=== PATIENT | female | born 1955 | race Caucasian/White ===

== ENCOUNTER → 2023-05-09 10:05 | Outpatient (CLI) | payer MEDICARE, OTHER, SELFPAY ==
[2023-05-09 11:02] LABS: Basophils % 0.5 % (0.1-2.0); Eosinophils # 0.1 K/mm3 (0.0-0.4); Eosinophils % 1.4 % (0.1-12.0); Hematocrit 35.5 % (37.0-47.0); Hemoglobin 11.4 g/dL (12.2-16.2); Lymphocytes # 2.6 K/mm3 (0.7-4.5); Lymphocytes % 42.4 % (10-50); Mean Corpuscular HGB Conc 32.2 g/dL (31.8-35.4); Mean Corpuscular Volume 93.1 fl (81-99); Mean Platelet Volume 8.1 fl (7.4-10.4); Monocytes # 1.1 K/mm3 (0.1-1.0); Monocytes % 17.5 % (1.7-9.3); Neutrophils # 2.3 K/mm3 (1.8-7.8); Neutrophils % 38.3 % (37.0-80.0); Platelet Count 247 K/mm3 (142-424); Red Blood Count 3.82 M/mm3 (4.20-5.40)
[2023-05-09 11:03] LABS: Chloride 108 mmol/L (98-107); Potassium 4.6 mmoL/L (3.5-5.1); Sodium 141 mmol/L (136-145)
[2023-05-09 11:05] LABS: Blood Urea Nitrogen 21 mg/dl (7-17); Estimated Glomerular Filt Rate 41 ml/min (>60); GFR (African American) 49 ML/MIN (>60)
[2023-05-09 11:06] LABS: Alanine Aminotransferase 18 U/L (12-78); Albumin Level 4.5 g/dl (3.5-5.0); Albumin/Globulin Ratio 1.6 (1.1-1.8); Alkaline Phosphatase 89 U/L (38-126); Anion Gap 10.6 mEq/L (5-15); Aspartate Amino Transferase 29 U/L (14-36); Bilirubin,Total 0.7 mg/dl (0.2-1.3); Calcium 8.7 mg/dl (8.4-10.2); Carbon Dioxide 27 mmol/L (22.0-30.0); Chol/HDL Ratio 4.5 (1-3.5); Cholesterol 232 mg/dl (140-200); Globulin 2.8 g/dL (1.3-3.2); Glucose 102 mg/dl (74-100); HDL Cholesterol 52 mg/dl (40-60); Total Protein,Serum 7.3 g/dl (6.3-8.2); Triglycerides 106 mg/dl (30-150); VLDL Cholesterol 21 mg/dL (0-40)
[2023-05-09 11:17] LABS: Direct LDL Cholesterol 125.37 mg/dL (100-129)
[2023-05-09 11:22] LABS: Free T4 (Free Thyroxine) 0.99 ng/dl (0.78-2.19)
[2023-05-09 11:30] LABS: 25-OH Vitamin D, Total 43.7 ng/mL (30-100)
[2023-05-09 11:38] LABS: Thyroid Stimulating Hormone 2.06 uIU/mL (0.465-4.68)
[2023-05-09 13:51] LABS: Hemoglobin A1C 5.6 % (4.0-6.0)
== END ==
PROVIDERS: PCP Internal Medicine; Visit Provider Internal Medicine
DX: Z00.00 Encounter for general adult medical examination without abnormal findings (principal); N18.31 Chronic kidney disease, stage 3a; E55.9 Vitamin D deficiency, unspecified; Z79.899 Other long term (current) drug therapy
CPT/HCPCS: 36415; 80053; 80061; 82306; 83036; 84439; 84443; 85025

== ENCOUNTER 2023-07-11 21:31 | Outpatient (CLI) | payer MEDICARE, OTHER, SELFPAY | END 2023-07-11 23:59 | LOC: LAB.DROPOF 21:32 | PROVIDERS: PCP Student in an Organized Health Care Education/Training Program; Visit Provider Student in an Organized Health Care Education/Training Program | DX: R05.9 Cough, unspecified (principal); R07.0 Pain in throat; R50.9 Fever, unspecified | CPT/HCPCS: 87635 ==

== ENCOUNTER 2023-08-09 12:33 | Outpatient (CLI) | payer MEDICARE, OTHER, SELFPAY ==
[2023-08-10 18:22] LABS: Deamidated Gliadin Abs, IgA 4 units (0-19); Deamidated Gliadin Abs, IgG 2 units (0-19); Tissue Transglutaminase IgA Ab <2 U/mL (0-3); Tissue Transglutaminase IgG Ab 2 U/mL (0-5)
[2023-08-12 15:26] LABS: Endomysial IgA Antibody Negative (Negative)
[2023-08-14 09:18] LABS: Reticulin IgA Antibody Negative titer (Neg:<1:2.5)
[2023-08-15 09:29] LABS: D001-IgE D pteronyssinus <0.10 kU/L (Class 0); D002-IgE D farinae <0.10 kU/L (Class 0); E001-IgE Cat Dander <0.10 kU/L (Class 0); E005-IgE Dog Dander <0.10 kU/L (Class 0); E072-IgE Mouse Urine <0.10 kU/L (Class 0); F004-IgE Wheat <0.10 kU/L (Class 0); G002-IgE Bermuda Grass <0.10 kU/L (Class 0); I006-IgE Cockroach, German <0.10 kU/L (Class 0); Immunoglobulin E, Total 28 IU/mL (6-495); M001-IgE Penicillium chrysogen <0.10 kU/L (Class 0); M002-IgE Cladosporium herbarum <0.10 kU/L (Class 0); M003-IgE Aspergillus fumigatus <0.10 kU/L (Class 0); M006-IgE Alternaria alternata <0.10 kU/L (Class 0); T001-IgE Maple/Box Elder <0.10 kU/L (Class 0); T003-IgE Common Silver Birch <0.10 kU/L (Class 0); T006-IgE Cedar, Mountain <0.10 kU/L (Class 0); T007-IgE Oak, White <0.10 kU/L (Class 0); T008-IgE Elm, American <0.10 kU/L (Class 0); T010-IgE Walnut <0.10 kU/L (Class 0); T011-IgE Maple Leaf Sycamore <0.10 kU/L (Class 0); T014-IgE Cottonwood <0.10 kU/L (Class 0); T015-IgE Ash, White <0.10 kU/L (Class 0); T022-IgE Pecan, Hickory <0.10 kU/L (Class 0); T070-IgE White Mulberry <0.10 kU/L (Class 0); W001-IgE Ragweed, Short 0.44 kU/L (Class I); W011-IgE Thistle, Russian <0.10 kU/L (Class 0); W014-IgE Pigweed, Common <0.10 kU/L (Class 0); W018-IgE Sheep Sorrel <0.10 kU/L (Class 0)
== END 2023-08-09 23:59 ==
LOC: LAB 12:34
PROVIDERS: PCP Internal Medicine; Visit Provider Allergy & Immunology
DX: J30.89 Other allergic rhinitis (principal); R10.9 Unspecified abdominal pain; Z91.018 Allergy to other foods
CPT/HCPCS: 36415; 82785; 83516; 86003; 86255; 86256

== ENCOUNTER 2023-09-09 12:03 | Outpatient (CLI) | payer MEDICARE, OTHER, SELFPAY ==
[2023-09-09 12:08] LABS: Microscopic, Urine URINE MICROSCOPIC (MICROSCOPIC)
[2023-09-09 12:57] LABS: Hemoglobin 11.5 g/dL (12.2-16.2); Mean Corpuscular HGB Conc 31.2 g/dL (31.8-35.4); Mean Corpuscular Volume 96.1 fl (81-99); Platelet Count 259 K/mm3 (142-424); Red Blood Count 3.84 M/mm3 (4.20-5.40); Red Cell Distribution Width 13.6 % (11.5-17.5); White Blood Count 6.1 K/mm3 (4.8-10.8)
[2023-09-09 12:59] LABS: Appearance,Urine CLEAR (Clear); Bilirubin,Urine Negative (Negative); Blood, Urine Negative (Negative); Color,Urine YELLOW (Yellow); Glucose,Urine (UA) Negative (Negative); Ketones,Urine Negative (Negative); Leukocyte Esterase,Urine Negative (Negative); Nitrate,Urine Negative (Negative); Protein,Urine Negative (Negative); Specific Gravity, Urine >= 1.030 (1.005-1.030); Urobilinogen,Urine 0.2 EU/dl (0.2)
[2023-09-09 13:22] LABS: Bacteria,Urine Trace /lpf; Squamous Epithelial Cell,Urine Occasional #/hpf (0-5)
[2023-09-09 13:30] LABS: Total Protein,Urine Random < 5.0 mg/dL (0.0-12.0)
[2023-09-09 13:46] LABS: Creatinine,Urine Random 131 mg/dL (Not Estab.)
[2023-09-09 14:00] LABS: Albumin Level 4.7 g/dl (3.5-5.0); Anion Gap 10.1 mEq/L (5-15); Blood Urea Nitrogen 23 mg/dl (7-17); Calcium 9.8 mg/dl (8.4-10.2); Carbon Dioxide 27 mmol/L (22.0-30.0); Chloride 106 mmol/L (98-107); Estimated Glomerular Filt Rate 41 ml/min (>60); GFR (African American) 49 ML/MIN (>60); Glucose 98 mg/dl (74-100); Phosphorous 4.2 mg/dl (2.5-4.5); Potassium 4.1 mmoL/L (3.5-5.1); Sodium 139 mmol/L (136-145)
[2023-09-09 14:12] LABS: Intact Parathyroid Hormone 123.1 pg/mL (7.5-53.5)
[2023-09-09 14:18] LABS: 25-OH Vitamin D, Total 47.9 ng/mL (30-100)
== END 2023-09-09 23:59 ==
LOC: LAB 12:03
PROVIDERS: PCP Internal Medicine; Visit Provider Internal Medicine Nephrology
DX: N18.31 Chronic kidney disease, stage 3a (principal); E55.9 Vitamin D deficiency, unspecified; Z68.29 Body mass index [BMI] 29.0-29.9, adult
CPT/HCPCS: 36415; 80069; 81001; 82306; 82570; 83970; 84156; 85014; 85018; 85048; 85049

== ENCOUNTER 2023-09-12 13:03 | Outpatient (POV) | payer MEDICARE, OTHER, SELFPAY | END 2023-09-12 23:59 | disposition home or self-care (01) | LOC: SC 13:03 | PROVIDERS: Visit Provider Internal Medicine Nephrology | DX: Z00.00 Encounter for general adult medical examination without abnormal findings (principal) ==

== ENCOUNTER 2023-12-17 06:22 | Day surgery (SDC) | payer MEDICARE, OTHER, SELFPAY ==
[2023-12-10 09:32] VITALS: BMI 29.0
[2023-12-17 06:36] VITALS: BP 138/72; PULSE 79; RESP 18; TEMP 36.3; O2SAT 94
[2023-12-17] MEDS: LACTATED RINGERS 1000ML 1,000 ML 25 ML IV (06:42)
--- NOTE | 2023-12-17 07:05 | EXP.ANES.CKL ---
[facility] Disclaimer: The information contained in this section may have been updated after the patient was seen, as this information can be updated by other users. Medical History Arthritis Kidney disease, chronic, stage III (GFR 30-59 ml/min) Surgical History History of hysterectomy Family History Other Asthma Hyperlipidemia Hypertension Kidney disease Thyroid disorder Social History Smoking Status: Never smoker alcohol intake: never substance use type: denies use current occupational status: retired Travel in the last 8 weeks: None [facility] Anesthesia Checklist Patient Identification Patient Identification: Arm Band and Family Structural Data Admitted From: Home Planned Operative Procedure/s: colonoscopy Consent for Planned Operative Procedure(s) Verified: Yes Verified Documents: Surgical Consent NPO Status Verified Time NPO: 00:00 Additional verifications Patient : No Anesthesia Reactions: No Hx Blood Transfusions: No Blood Transfusion Reaction: No Cephalosporin Allergy: No Previous Colonoscopy: Yes Airway Assessment Mallampati Score:: Class II C-Spine Mobility Assessed: Yes TMJ Mobility Assessed: Yes Dentition: Good Dentition Neurological Assessment Level of Consciousness: Awake, Alert, Appropriate and Follows Commands Hx Seizures: No Numbness or tingling in extremities: No Anesthesia Plan Anesthesia Risk discussed: Yes ASA Class: II Anesthesia Type: MAC
[2023-12-17 07:14] VITALS: O2SAT 99
--- NOTE | 2023-12-17 07:45 | P.PCN_ITS ---
Procedure: Date: 12/17/23 Patient Date of :: 1955 Procedure Performed:: Colonoscopy with polypectomy Indications:: History of colon polyps Performing Provider:: Mio Vaca MD Referring Provider:: . Sedation:: Monitored anesthesia care Procedure:: After informed consent was obtained the patient was taken to the endoscopy suite. Sedation ensued after the patient was transferred to the left lateral d ecubitus position. Pulse, blood pressure, and oxygen saturation were monitored throughout the procedure. Digital rectal exam revealed no significant abnormality. The colonoscope was placed in position. The entire colon was evaluated. The colonoscope was carefully removed and the patient was transferred to recovery in stable condition. Please see findings and specimens below for detail. Findings:: Bowel preparation fairly poor Moderate tortuosity Moderate lack of relaxation/spasticity (particularly in sigmoid colon) Hemorrhoidal cushions/tags Pandiverticulosis (worse in sigmoid) Large sessile complex polyp (see specimens) Specimens:: Large sessile complex periappendiceal polyp (cold snare) Recommendations:: Timing of repeat colonoscopy is pending pathology will likely be between 6-12 months with extended bowel preparation secondary to fairly poor bowel preparation, size/nature of polyp, and spasticity/lack of relaxation. Complications:: No immediate Estimated blood obtained (mL): 1 Colonoscopy Component Colonoscopy Component Was a colonoscopy performed during today's procedure?: Yes Recommended follow up colonoscopy of at least 10 years?: No If no, follow up colonoscopy recommended in ___ years?: (See above) Reason for not recommending >/= 10 yr follow-up interval?: (See above)
[2023-12-17 07:49] VITALS: BP 97/54; PULSE 79; RESP 18; TEMP 36.4; O2SAT 95
[2023-12-17 07:59] VITALS: BP 145/88; PULSE 89; RESP 16; TEMP 36.9; O2SAT 96
[2023-12-17 08:09] VITALS: BP 127/82; PULSE 78; RESP 16; TEMP 36.9; O2SAT 97
[2023-12-17 08:19] VITALS: BP 129/91; PULSE 77; RESP 16; TEMP 36.9; O2SAT 98
== END 2023-12-17 08:22 | disposition home or self-care (01) ==
PROVIDERS: PCP Internal Medicine; Visit Provider Surgery
PROC: 0DJD8ZZ Inspection of Lower Intestinal Tract, Via Natural or Artificial Opening Endoscopic (ICD-10-PCS; CPT 45385; principal; 2023-12-17 07:30)
DX: Z12.11 Encounter for screening for malignant neoplasm of colon (principal); Z86.010 Personal history of colon polyps; K64.9 Unspecified hemorrhoids; K57.30 Diverticulosis of large intestine without perforation or abscess without bleeding; D12.1 Benign neoplasm of appendix
CPT/HCPCS: 45385; 88305; J2704; J7120

== ENCOUNTER 2024-04-09 12:10 | Outpatient (CLI) | payer MEDICARE, OTHER, SELFPAY ==
--- NOTE | 2024-04-09 12:14 | XR_ITS ---
PROCEDURE INFORMATION: Exam: XR Lumbosacral Spine Exam date and time: 04/09/2024 12:15 PM Age: 68 years old Clinical indication: Low back pain TECHNIQUE: Imaging protocol: Radiologic exam of the lumbosacral spine. Views: 2 or 3 views. COMPARISON: CR XR PELVIS 1-2V 04/09/2024 12:15 PM FINDINGS: Bones/joints: There is slight anterolisthesis of L4 on L5. There is mild lower lumbar degenerative disease with facet arthropathy and intervertebral disc space narrowing. No acute fracture or dislocation is identified. Soft tissues: Unremarkable. Other findings: Prevertebral and paravertebral soft tissues appear unremarkable. IMPRESSION: Degenerative disease without acute injury identified.
--- NOTE | 2024-04-09 12:14 | XR_ITS ---
PROCEDURE INFORMATION: Exam: XR Pelvis Exam date and time: 04/09/2024 12:15 PM Age: 68 years old Clinical indication: Pelvic pain; Additional info: Low back pain TECHNIQUE: Imaging protocol: Radiologic exam of the pelvis. Views: 1 or 2 view. COMPARISON: CR XR PELVIS 1-2V 04/09/2024 12:15 PM FINDINGS: Bones/joints: Unremarkable. No acute fracture. Soft tissues: Unremarkable. IMPRESSION: No acute findings.
[2024-04-09 15:38] LABS: Alanine Aminotransferase 13 U/L (12-78); Albumin Level 4.6 g/dl (3.5-5.0); Albumin/Globulin Ratio 1.8 (1.1-1.8); Alkaline Phosphatase 73 U/L (38-126); Anion Gap 16.9 mEq/L (5-15); Aspartate Amino Transferase 25 U/L (14-36); Bilirubin,Total 0.5 mg/dl (0.2-1.3); Blood Urea Nitrogen 21 mg/dl (7-17); Calcium 9.5 mg/dl (8.4-10.2); Carbon Dioxide 24 mmol/L (22.0-30.0); Chloride 109 mmol/L (98-107); Estimated Glomerular Filt Rate 40 ml/min (>60); GFR (African American) 49 ML/MIN (>60); Globulin 2.5 g/dL (1.3-3.2); Glucose 77 mg/dl (74-100); Potassium 4.9 mmoL/L (3.5-5.1); Sodium 145 mmol/L (136-145); Total Protein,Serum 7.1 g/dl (6.3-8.2)
[2024-04-09 15:48] LABS: Intact Parathyroid Hormone 90.2 pg/mL (7.5-53.5)
== END 2024-04-09 23:59 | disposition home or self-care (01) ==
LOC: RAD 12:12
PROVIDERS: PCP Internal Medicine; Visit Provider Internal Medicine
DX: M54.50 Low back pain, unspecified (principal); N18.31 Chronic kidney disease, stage 3a; E21.3 Hyperparathyroidism, unspecified
CPT/HCPCS: 72100; 72170; 80053; 83970

== ENCOUNTER 2024-05-04 10:56 | Outpatient (CLI) | payer MEDICARE, OTHER, SELFPAY ==
--- NOTE | 2024-05-04 11:02 | MM_ITS ---
PROCEDURE INFORMATION: Exam: MG Bilateral Screening 3D Mammography Exam date and time: 05/04/2024 10:44 AM Age: 68 years old Clinical indication: Screening examination. TECHNIQUE: Imaging protocol: Bilateral Screening tomosynthesis and 2D mammography including computer-aided detection (CAD) when performed. COMPARISON: No relevant prior studies available. FINDINGS: MAMMOGRAPHY: Breast composition: There are scattered areas of fibroglandular density. Mass: None. Architectural distortion: None. Calcifications: No suspicious calcifications. Asymmetric density: None. Skin thickening: None. Axillary adenopathy: None. IMPRESSION: No mammographic evidence of malignancy. Annual screening is recommended unless otherwise clinically indicated. ASSESSMENT: BI-RADS Category 1: Negative.
== END 2024-05-04 23:59 | disposition home or self-care (01) ==
LOC: RAD 10:57
PROVIDERS: PCP Internal Medicine; Visit Provider Internal Medicine
DX: Z12.31 Encounter for screening mammogram for malignant neoplasm of breast (principal)
CPT/HCPCS: 77063; 77067

== ENCOUNTER 2024-05-20 09:54 | Emergency (ER) | payer MEDICARE, OTHER, SELFPAY ==
[2024-05-20 10:30] VITALS: BP 138/75; PULSE 87; RESP 18; TEMP 36.9; O2SAT 97; BMI 33.3
--- NOTE | 2024-05-20 10:52 | ED_ITS ---
Discharge Plan Disposition Patient Disposition: Home, Self-Care Condition: Good Prescriptions Prescriptions: No Action cholecalciferol (vitamin D3) [D3-2000] 50 mcg (2,000 unit) capsule 50 mcg PO DAILY Patient Comments: TAKE ONE CAPSULE BY MOUTH DAILY trazodone 50 mg tablet 75 mg PO HS Qty: 145 1RF enalapril maleate 5 mg tablet See Rx Instructions .ROUTE .COMPLEX Qty: 90 0RF Dose Instruction: TAKE 1 TABLET BY MOUTH EVERY DAY Rx Instructions: TAKE 1 TABLET BY MOUTH EVERY DAY Referrals Follow up/Referrals: Fabrizio Pickett, [Primary Care Provider] - See instructions Activity Restrictions/Add. Instructions Additional Instructions/Restrictions: *Monitor Temp, Over the counter Motrin or Tylenol as directed/as needed Tylenol every 4 hours and Motrin every 6 hours (as long as your family doctor has told you that you can take it) for fever or pain. and straight to ER if unable to lower temp less than 101.0 after medication given *Warm salt water gargles may help to soothe the throat *Throat Lozenges? *Warm fluids like tea with honey may help to soothe the throat? *Sleep elevated *Humidifier/Vaporizer Follow up IMMEDIATELY for new or worsening symptoms or no Noticeable improvement over the next 48-72 hours. 911 for difficulty breathing or swallowing You was tested for RSV and Rapid COVID Flu, these test should be back later today and available on the [facility] My [facility] Portal, Follow up with your Family Doctor if needed Clinical Impressions Clinical Impression: Viral upper respiratory infection Instructions Patient Instructions: DI for Respiratory Syncytial Virus -- Adults, DI for Viral Upper Respiratory Infection -- Adult Print Language Print Language: Arabic Discharge ED Provider: Aleida Pavon [facility] HPI General Stated complaint: chest congestion, cough, fever, body aches Time Seen by Provider: 05/20/24 10:52 History of Present Illness Provider Complaint: Patient states that she cared for one of her grandchildren last week with RSV then on Saturday she started with fever, chills, body aches and congestion States that she wanted to get tested worried that she may have it now too Related Data Home Medications ?Medication ?Instructions ?Recorded ?Confirmed cholecalciferol (vitamin D3) 50 50 mcg PO DAILY 10/03/23 05/20/24 mcg (2,000 unit) capsule (D3-1999) Previous Rx's ?Medication ?Instructions ?Recorded trazodone 50 mg tablet 75 mg (1.5 x 50 mg) PO HS #145 tabs 03/12/24 enalapril maleate 5 mg tablet See Rx Instructions .Route 04/07/24 .COMPLEX #90 tabs Allergies Allergy/AdvReac Type Severity Reaction Status Date / Time No Known Allergies Allergy Verified 04/09/24 11:06 [facility] Disclaimer: The information contained in this section may have been updated after the patient was seen, as this information can be updated by other users. Medical History Arthritis Kidney disease, chronic, stage III (GFR 30-59 ml/min) Surgical History History of colonoscopy History of hysterectomy Family History Other Asthma Hyperlipidemia Hypertension Kidney disease Thyroid disorder Social History Smoking Status: Never smoker alcohol intake: never substance use type: denies use current occupational status: retired Travel in the last 8 weeks: None ROS Obtained: Yes All systems reviewed & no additional complaints except as documented and Yes Systems reviewed as appropriate & no additional complaints except as documented Constitutional Constitutional: Reports system reviewed and no additional complaints, except as documented, Reports as per HPI, Reports body ache, Reports chills and Reports fever(s) ENT Ears, Nose, Mouth, and Throat: Reports system reviewed and no additional complaints, except as documented, Reports as per HPI and Reports nasal congestion Cardiovascular Cardiovascular: Reports system reviewed and no additional complaints, except as documented and Reports as per HPI Respiratory Respiratory: Reports system reviewed and no additional complaints, except as documented, Reports as per HPI, Denies shortness of breath, Reports chest congestion, Reports cough, Denies stridor and Denies wheezing Gastrointestinal Gastrointestingal: Reports system reviewed and no additional complaints, except as documented and as per HPI Allergic/Immunologic Allergic/Immunologic: Denies wheezing Physical Exam General General appearance: alert and in no apparent distress ENT ENT exam: Present mucous membranes moist Expanded ENT Exam Nose exam: Absent sinus tenderness Throat exam: Present normal inspection Respiratory Respiratory exam: Present normal lung sounds bilaterally; Absent respiratory distress or wheezes Cardiovascular Cardiovascular exam: Present regular rate, normal rhythm and normal heart sounds Neurological Exam Neurological exam: Present alert, oriented X3 and normal gait Medical Decision Making Medical Records Screening: Per USPSTF and CDC recommendations, given the prevalence of disease in our region, it is our hospital?s policy to screen for HIV and viral Hepatitis for all patients aged 18 and over and those with ongoing risk factors. Jez Inquiry Pt receiving controlled substance: No Jez was queried for this patient: No Orders (Tests/Meds): ORDERS Category Date Time Status RSV Rapid Ab Screen Stat Lab 05/20/24 10:07 Received
[2024-05-20 11:03] VITALS: BP 138/75; PULSE 87; RESP 18; TEMP 36.9; O2SAT 97
[2024-05-20 11:07] LABS: RSV Rapid Ab Screen Negative (Negative)
[2024-05-20 11:14] LABS: Coronavirus 19, PCR Not Detected (NotDetected); Influenza A, PCR Not Detected (NotDetected); Influenza B, PCR Not Detected (NotDetected)
== END 2024-05-20 11:07 | disposition home or self-care (01) ==
PROVIDERS: Emergency Provider Nurse Practitioner; PCP Internal Medicine
DX: J06.9 Acute upper respiratory infection, unspecified (principal); R50.9 Fever, unspecified; R09.89 Other specified symptoms and signs involving the circulatory and respiratory systems; R05.9 Cough, unspecified; M79.10 Myalgia, unspecified site
CPT/HCPCS: 87636; 87807; 99212; G0381

== ENCOUNTER 2024-05-25 11:01 | Outpatient (CLI) | payer MEDICARE, OTHER, SELFPAY ==
[2024-05-25 11:10] LABS: Microscopic, Urine URINE MICROSCOPIC (MICROSCOPIC)
[2024-05-25 11:54] LABS: Hematocrit 34.8 % (37.0-47.0); Hemoglobin 11.3 g/dL (12.2-16.2); Mean Corpuscular HGB Conc 32.5 g/dL (31.8-35.4); Mean Corpuscular Hemoglobin 29.6 pg (27.0-31.2); Platelet Count 255 K/mm3 (142-424); Red Blood Count 3.83 M/mm3 (4.20-5.40); Red Cell Distribution Width 13.6 % (11.5-17.5); White Blood Count 7.8 K/mm3 (4.8-10.8)
[2024-05-25 12:24] LABS: Chloride 107 mmol/L (98-107); Sodium 135 mmol/L (136-145)
[2024-05-25 12:25] LABS: Albumin Level 4.4 g/dl (3.5-5.0)
[2024-05-25 12:27] LABS: Blood Urea Nitrogen 20 mg/dl (7-17); Carbon Dioxide 25 mmol/L (22.0-30.0); Estimated Glomerular Filt Rate 40 ml/min (>60); GFR (African American) 49 ML/MIN (>60)
[2024-05-25 12:28] LABS: Calcium 9.7 mg/dl (8.4-10.2); Glucose 91 mg/dl (74-100); Phosphorous 3.6 mg/dl (2.5-4.5)
[2024-05-25 12:38] LABS: Appearance,Urine CLEAR (Clear); Bilirubin,Urine Negative (Negative); Blood, Urine Negative (Negative); Color,Urine YELLOW (Yellow); Glucose,Urine (UA) Negative (Negative); Ketones,Urine Negative (Negative); Leukocyte Esterase,Urine Negative (Negative); Nitrate,Urine Negative (Negative); Protein,Urine Negative (Negative); Specific Gravity, Urine >= 1.030 (1.005-1.030); Urobilinogen,Urine 0.2 EU/dl (0.2)
[2024-05-25 12:57] LABS: WBC,Urine Occasional #/hpf (0-3)
[2024-05-25 12:58] LABS: Creatinine,Urine Random 149 mg/dL (Not Estab.)
[2024-05-25 16:18] LABS: 25-OH Vitamin D, Total 47.2 ng/mL (30-100)
== END 2024-05-25 23:59 | disposition home or self-care (01) ==
LOC: LAB 11:03
PROVIDERS: PCP Internal Medicine; Visit Provider Internal Medicine Nephrology
DX: N18.31 Chronic kidney disease, stage 3a (principal)
CPT/HCPCS: 36415; 80069; 81001; 82306; 82570; 84156; 85027

== ENCOUNTER 2025-01-17 09:06 | Emergency (ER) | payer MEDICARE, OTHER, SELFPAY ==
[2025-01-17] VITALS (10 sets, daily range): BP systolic 119–145; BP diastolic 59–87; PULSE 58–77; RESP 11–21; TEMP 36.4–36.7; O2SAT 93–99; BMI 28.7
--- NOTE | 2025-01-17 09:13 | ECG_ITS ---
APPROVED REPORT Exam: Resting ECG HR:62 bpm ECG Measurements Heart Rate 62 AXES MI 159 P 67 QRSd 85 QRS 68 QT 395 T 53 QTc 399 Conclusion SINUS RHYTHM NORMAL ECG UNCONFIRMED REPORT Normal sinus rhythm. No ST elevation or depression. Electronically signed by : WES RIVERA, 01/18/2025 07:06:00
--- NOTE | 2025-01-17 09:15 | HMH.EDGENADL ---
Discharge Plan Disposition Patient Disposition: Home, Self-Care Prescriptions Prescriptions: No Action epinephrine 0.3 mg/0.3 mL auto-injector 0.3 mg SQ cholecalciferol (vitamin D3) [D3-2000] 50 mcg (2,000 unit) capsule 50 mcg PO DAILY Patient Comments: TAKE ONE CAPSULE BY MOUTH DAILY cetirizine 10 mg tablet 10 mg PO fluticasone propionate 50 mcg/actuation spray,suspension intranasal Patient Comments: SHAKE LIQUID AND USE 1 SPRAY IN EACH NOSTRIL DAILY trazodone 50 mg tablet 75 mg PO HS Qty: 145 1RF ramelteon [Rozerem] 8 mg tablet 8 mg PO HS PRN (Reason: insomnia) Qty: 90 2RF enalapril maleate 5 mg tablet 5 mg PO DAILY Qty: 90 1RF Referrals Follow up/Referrals: Fabrizio Pickett DO [Primary Care Provider, [facility]] - See instructions Activity Restrictions/Add. Instructions Additional Instructions/Restrictions: Your workup today does not show any evidence of stroke or heart attack or other concerning findings. Encourage you to follow-up with your primary care physician closely. Continue to drink plenty of fluids, including water, sugar-free Gatorade and Pedialyte. If you develop any new or worsening symptoms, or if you become concerned for your hit health for any reason, return to the emergency department for evaluation. Clinical Impressions Clinical Impression: Pre-syncope Print Language Print Language: Macedonian Discharge ED Provider: Regino Galvan General Adult HPI General Chief complaint: Dizziness Stated complaint: feeling faint,weak, blurry vision Time Seen by Provider: 01/17/25 09:15 History of Present Illness HPI narrative: Paola Lambert is a 69-year-old female with a history of CKD stage III, hypertension who presents to the emergency department for complaints of a presyncopal episode. Patient states that she was standing in [employer] practicing singing when she felt both eyes get blurry and felt lightheaded and like she was about to pass out. She states that her vision started to get darkened. She denies any chest pain or shortness of breath with this. She sat down and over 10 minutes, the symptoms resolved on their own. She states that she may have a slight lower vision in her left eye currently but overall feels back to her baseline. She does report a history of CKD and hypertension and states that she has passed out a couple times in the past. She denies any recent nausea, vomiting, diarrhea, abdominal pain. She states that she feels like she has been hydrating well. She does report that she had COVID approximately 2 weeks ago and may have a mild cough but otherwise has been doing well. Related Data Home Medications ?Medication ?Instructions ?Recorded ?Confirmed cholecalciferol (vitamin D3) 50 50 mcg PO DAILY 10/03/23 01/13/25 mcg (2,000 unit) capsule (D3-2000) epinephrine 0.3 mg/0.3 mL 0.3 mg SQ 12/15/24 01/13/25 injection, auto-injector cetirizine 10 mg tablet 10 mg PO 01/13/25 01/13/25 fluticasone propionate 50 intranasal 01/13/25 01/13/25 mcg/actuation nasal spray,suspension Previous Rx's ?Medication ?Instructions ?Recorded trazodone 50 mg tablet 75 mg (1.5 x 50 mg) PO HS #145 tabs 03/12/24 ramelteon 8 mg tablet (Rozerem) 8 mg PO HS PRN insomnia #90 tabs 12/08/24 enalapril maleate 5 mg tablet 5 mg PO DAILY #90 tabs 01/12/25 Allergies Allergy/AdvReac Type Severity Reaction Status Date / Time No Known Allergies Allergy Verified 01/17/25 09:23 [facility] Disclaimer: The information contained in this section may have been updated after the patient was seen, as this information can be updated by other users. Medical History Arthritis Kidney disease, chronic, stage III (GFR 30-59 ml/min) Surgical History History of colonoscopy History of hysterectomy Family History Other Asthma Hyperlipidemia Hypertension Kidney disease Thyroid disorder Social History Smoking Status: Never smoker alcohol intake: never substance use type: denies use current occupational status: retired Travel in the last 8 weeks?: None Have you lived/traveled outside US in past 30 days?: No Contact w/someone who lives/traveled outside US past 30 days?: No Exposure to someone with infectious disease in past 14 days?: No Do you have a fever (greater than 100.4 F or 38 C)?: No Have you tested positive for COVID-19?: No Exposed to someone with COVID-19 in past 14 days?: No Do you have a sore throat?: No Do you have a cough?: No Do you have any weakness?: No Do you have any diarrhea?: No Are you experiencing any unusual bleeding?: No Do you have any muscle aches/pain?: No Do you have any abdominal pain?: No Are you experiencing loss of taste or smell?: No Other Medical History Have you received the Pneumonia Vaccine: Yes ROS Obtained: Yes Systems reviewed as appropriate & no additional complaints except as documented Physical Exam General General appearance: alert and in no apparent distress Head Head exam: atraumatic Eye Eye exam: Present normal appearance ENT ENT exam: Present normal external ear exam Neck Neck exam: Present full ROM Chest Chest inspection: Present symmetric chest wall rise Respiratory Respiratory exam: Present normal lung sounds bilaterally; Absent respiratory distress, wheezes or stridor Cardiovascular Cardiovascular exam: Present regular rate and normal rhythm Abdominal Exam Abdominal exam: Present soft; Absent distention, tenderness or guarding Extremities Exam Extremities exam: Present normal inspection Back Exam Back exam: Present normal inspection Neurological Exam Neurological exam: Present alert, oriented X3, CN II-XII intact and other (Normal finger-nose testing, normal hziv-[id number] testing extraocular muscles intact, pupils equal round reactive to light, no nystagmus ); Absent motor sensory deficit Psychiatric Psychiatric exam: Present normal affect Skin Skin exam: Present warm and dry Medical Decision Making Medical Records Screening: Per USPSTF and CDC recommendations, given the prevalence of disease in our region, it is our hospital?s policy to screen for HIV and viral Hepatitis for all patients aged 18 and over and those with ongoing risk factors. Jez Inquiry Pt receiving controlled substance: No Vital Signs: 01/17/25 09:16 01/17/25 09:16 01/17/25 09:30 Temperature 97.6 F 97.6 F Temperature Source Oral Oral Pulse Rate 62 62 Pulse Rate [Right] 62 Respiratory Rate 16 16 11 L Blood Pressure 134/60 119/61 Blood Pressure [Right Arm] 134/60 Blood Pressure Mean [Right Arm] 84 Blood Pressure Source Automatic Cuff Blood Pressure Source [Right Arm] Automatic Cuff Blood Pressure Position Supine Blood Pressure Position [Right Arm] Supine 02 Sat by Pulse Oximetry 97 97 93 L Oxygen Delivery Method Room Air Room Air 01/17/25 10:00 01/17/25 10:30 01/17/25 11:00 Temperature Temperature Source Pulse Rate 65 71 70 Pulse Rate [Right] Respiratory Rate 15 15 17 Blood Pressure 119/61 128/64 125/67 Blood Pressure [Right Arm] Blood Pressure Mean [Right Arm] Blood Pressure Source Blood Pressure Source [Right Arm] Blood Pressure Position Blood Pressure Position [Right Arm] 02 Sat by Pulse Oximetry 96 95 94 L Oxygen Delivery Method 01/17/25 11:30 01/17/25 12:00 01/17/25 12:31 Temperature Temperature Source Pulse Rate 69 58 L 77 Pulse Rate [Right] Respiratory Rate 14 13 21 Blood Pressure 122/64 124/59 L 145/87 H Blood Pressure [Right Arm] Blood Pressure Mean [Right Arm] Blood Pressure Source Blood Pressure Source [Right Arm] Blood Pressure Position Blood Pressure Position [Right Arm] 02 Sat by Pulse Oximetry 95 97 97 Oxygen Delivery Method Room Air Room Air Room Air 01/17/25 13:00 Temperature Temperature Source Pulse Rate 70 Pulse Rate [Right] Respiratory Rate 15 Blood Pressure 127/70 Blood Pressure [Right Arm] Blood Pressure Mean [Right Arm] Blood Pressure Source Blood Pressure Source [Right Arm] Blood Pressure Position Blood Pressure Position [Right Arm] 02 Sat by Pulse Oximetry 96 Oxygen Delivery Method Room Air Lab Data Lab Results 01/17/25 09:16: WBC 8.6, RBC 3.80 L, Hgb 11.0 L, Hct 35.6 L, MCV 93.7, MCH 28.9, MCHC 30.9 L, RDW 13.2, Plt Count 229, MPV 10.9 H, Neut % (Auto) 28.1 L, Lymph % (Auto) 41.1, Dukes % (Auto) 27.6 H, Eos % (Auto) 1.5, Baso % (Auto) 0.4, Neut # (Auto) 2.4, Lymph # (Auto) 3.5, Dukes # (Auto) 2.4 H, Eos # (Auto) 0.1, Baso # (Auto) 0.0, Total Counted 100, Neutrophils % (Manual) 31 L, Lymphocytes % (Manual) 41, Monocytes % (Manual) 24 H, Eosinophils % (Manual) 4 H, Platelet Estimate Normal, RBC Morphology Normal, Sodium 141, Potassium 4.0, Chloride 106, Carbon Dioxide 23, Anion Gap 16.0 H, BUN 22 H, Creatinine 1.50 H, Estimated Creat Clear 44, Estimated GFR 34 L, Est GFR ( Amer) 41 L, Glucose 114 H, Calcium 9.1, Total Bilirubin 0.5, AST 27, ALT 14, Alkaline Phosphatase 108, Troponin I < 0.01, NT-Pro-B Natriuret Pep 184 H, Total Protein 7.8, Albumin 4.6, Globulin 3.2, Albumin/Globulin Ratio 1.4 01/17/25 09:56: Urine Color Yellow, Urine Appearance Clear, Urine pH 6.0, Ur Specific Cortland 1.020, Urine Protein Negative, Urine Glucose (UA) Negative, Urine Ketones Negative, Urine Blood Negative, Urine Nitrate Negative, Urine Bilirubin Negative, Urine Urobilinogen 0.2, Ur Leukocyte Esterase 1+ A, Urine RBC None, Urine WBC 3-5, Ur Squamous Epith Cells 3-5, Urine Bacteria 1+, Hyaline Casts Occ 01/17/25 12:24: Troponin I < 0.01 01/17/25 09:16 01/17/25 09:16 Orders (Tests/Meds): ED MEDICATIONS Generic Name Dose Route Start Last Admin Trade Name Freblair PRN Reason Stop Dose Admin Sodium Chloride 10 ml 01/17/25 10:07 01/17/25 10:08 Sodium Chloride 0.9% 10ml Syr (Rad Only) IV 02/16/25 10:06 10 ml NEEDED PRN Administration Maintain IV Site Discontinued Medications Generic Name Dose Route Start Last Admin Trade Name Freq PRN Reason Stop Dose Admin Lactated Ringer's 500 mls @ 999 mls/hr 01/17/25 09:24 01/17/25 09:51 Lactated Ringer's 500ml IV 01/17/25 09:54 999 mls/hr .Q31M ONE Administration Iopamidol 80 ml 01/17/25 10:07 01/17/25 10:08 Iopamidol-370 (76%);100ml Bottle IV 01/17/25 10:08 80 ml ONCE ONE Administration Sodium Chloride 50 ml 01/17/25 10:07 01/17/25 10:08 0.9 % Sodium Chloride 50 Ml Vial IV 01/17/25 10:08 50 ml ONCE ONE Administration ORDERS Category Date Time Status CT angio head Stat Cat Scan 01/17/25 09:[address] angio neck Stat Cat Scan 01/17/25 09:[address] head/brain wo con Stat Cat Scan 01/17/25 09:23 Completed CXR --portable [XR chest portable] Stat Exams 01/17/25 09:28 Completed POCUS Point of Care (ER Only) Stat Exams 01/17/25 09:28 Completed BNP [NT Pro Brain Natriuretic Pep.] Stat Lab 01/17/25 09:16 Completed CBC w/Auto Diff [Complete Blood Count Auto Diff] Stat Lab 01/17/25 09:16 Completed CMP [Comprehensive Metabolic Panel] Stat Lab 01/17/25 09:16 Completed Troponin I Q3H Lab 01/17/25 12:24 Completed Troponin I Q3H Lab 01/17/25 15:30 Ordered Troponin I Stat Lab 01/17/25 09:16 Completed UA [Urinalysis and Microscopic] Stat Lab 01/17/25 09:56 Completed Urine Culture Stat Micro 01/17/25 09:56 Received ECG Data Tracing #1: I reviewed this ECG and interpreted as documented below: Normal sinus rhythm. No ST elevation or depression. QTc normal at 399 Medical Decision Narrative: Paola Lambert is a 69-year-old female with a history of CKD stage III, hypertension who presents to the emergency department for complaints of a presyncopal episode. Patient states that she was standing in [employer] practicing singing when she felt both eyes get blurry and felt lightheaded and like she was about to pass out. She states that her vision started to get darkened. She denies any chest pain or shortness of breath with this. She sat down and over 10 minutes, the symptoms resolved on their own. She states that she may have a slight lower vision in her left eye currently but overall feels back to her baseline. She does report a history of CKD and hypertension and states that she has passed out a couple times in the past. She denies any recent nausea, vomiting, diarrhea, abdominal pain. She states that she feels like she has been hydrating well. She does report that she had COVID approximately 2 weeks ago and may have a mild cough but otherwise has been doing well. On arrival, patient is normotensive with blood pressure 134/60, heart rate within normal limits, afebrile, maintaining oxygen saturation 97% on room air. Physical exam, stated above, reveals an overall well-appearing female in no distress. GCS 15. Cranial nerves II through XII intact. Normal finger-nose testing, normal [id number]-qp-[id number] testing, 5 out of 5 strength and sensation to all extremities. Cardiopulmonary exam is unremarkable with no murmurs, wheezing, rales or rhonchi. Abdomen is soft, nontender nondistended. Visual manzo are intact bilaterally. Pupils equal round reactive to light. Extraocular movements intact. Differential diagnosis includes, but is not limited to: Vasovagal syncope, orthostatic syncope, cardiac arrhythmia, stroke, carotid artery stenosis, electrolyte derangement, metabolic derangement, ACS, pericarditis, myocarditis, pericardial effusion, among others. Workup in the emergency department included: Chest x-ray, [id number] cardiac and lung ultrasound, CTA head and neck, CT head without contrast, CBC with differential, CMP, troponin, BNP, urinalysis. Patient was fluid bolus given her history of CKD administered a 500 cc prior to obtaining contrasted CT scans. [id number]-[id number] cardiac ultrasound showed normal estimated left ventricular ejection fraction without wall motion abnormality. No pericardial effusion. No signs of right heart strain. No B-lines present bilaterally with lung sliding present bilaterally. See procedure note for details. Laboratory studies show no leukocytosis, stably low hemoglobin at 11.0, hematocrit 35.6, platelets normal at 229, electrolytes within normal limits, anion gap is mildly elevated at 16, creatinine near baseline at 1.5 and BUN of 22. Liver enzymes and bilirubin thin normal limits. Initial troponin less than 0.01, BNP very mildly elevated at 184. Urinalysis with 1+ leukocyte Estrace but only 3-5 white blood cells and 1+ bacteria with negative nitrates, unlikely to represent urinary tract infection given she is not having any urinary symptoms. Chest x-ray interpreted by me personally. No focal consolidations, no pneumothorax, no widening of the mediastinum, no enlarged cardiac silhouette. See radiology report for details. CT imaging was interpreted by me personally. No large vessel occlusion or significant stenosis. No intracranial hemorrhage, mass or midline shift. She does have plaque in the left carotid bulb causing less than 50% stenosis. On reassessment, patient's repeat troponin is also negative. On reassessment, patient remained in stable condition. He was able to ambulate here in the emergency department. Is felt that she likely had a vasovagal episode while standing at [employer]. She was encouraged to continue hydrating by drinking plenty of fluids and was encouraged to avoid locking her knees while standing. She was encouraged to follow-up with her primary care physician. Return precautions were given. All questions were answered. She demonstrated understanding and was agreement this plan. She was then discharged in the emergency department in stable condition. Critical Care Critical Care Time Critical Care Time: No
--- OUTSIDE RECORDS SUMMARY | 2025-01-17 09:19 | XMS_ITS | Clinical Summary ---
Author Organization Healthcare Address [address] [place] [address] Care Team Providers Care Checker Stocker Name Role Phone Fabrizio Pickett DO Primary Care Provider [phone] Allergies No known active allergies Medications Ascorbic Acid (vitamin C) 250 MG tablet Take 1 tablet (250 mg) by mouth 1 (one) time each day. Active enalapril (Vasotec) 5 MG tablet Take 1 tablet (5 mg) by mouth 1 (one) time each day. Active traZODone (Desyrel) 50 MG tablet Take 1 tablet (50 mg) by mouth every night. Active fluticasone (Flonase) 50 MCG/ACT nasal spray SHAKE LIQUID AND USE 1 SPRAY IN EACH NOSTRIL DAILY 07/11/2023 Active cholecalciferol (Vitamin D-3) 50 MCG (1999 UT) capsuleIndicati ons:Vitamin D deficiency TAKE ONE CAPSULE BY MOUTH DAILY 90 capsule 3 09/24/2024 Active Active Problems Problem Noted Date Diagnosed Date Other hyperlipidemia 05/29/2024 Stage 3 chronic kidney disease 05/29/2024 Hypertensive chronic kidney disease with stage 1 through stage 4 chronic kidney disease, or unspecified chronic kidney disease 05/29/2024 Chronic kidney disease-mineral and bone disorder (CKD-MBD) 05/29/2024 Immunizations Immunization Administration Dates Next Due Influenza Vaccine, Quadrival ent, Adjuvanted 04/21/2022 Influenza, Unspecified 04/21/2022 Influenza, seasonal, injectable 03/26/2019 Moderna COVID-19 Vaccine Biv alent 6months+ 04/27/2022 SARS-CoV-2, Unspecified 04/27/2022,01/22,07/09/2021,2020,10/09/2020,08/22/2020 Tdap 02/23/2020 Tetanus Toxoid, Unspecified 06/19/2015, 6 Family History Medical History Relation Name Comments Asthma Father Kidney Stones Father Liver cancer Father Pancreatic cancer Father Relation Name Status Comments Father Social History Tobacco Use Types Packs/Day Years Used Date Smoking Tobacco: Never Passive Smoke Exposure: Never Smokeless Tobacco: Never Tobacco Cessation:Counseling Given: Not Answered Alcohol Use Standard Drinks/Week Comments Never 0 (1 standard drink = 0.6 oz pur e alcohol) PHQ-2 Answer Date Recorded Patient Health Questionnaire-2 Score 0 09/12/2023 Comments No Sex and Gender Information Value Date Recorded Sex Assigned at Not on file Legal Sex Female 3:12 PM EST Gender Identity Not on file Sexual Orientation Not on file Last Filed Vital Signs Vital Sign Reading Time Taken Comments Blood Pressure 118/68 05/29/2024 9:07 AM EST Pulse 80 05/29/2024 9:07 AM EST Temperature 36.3 C (97.4 F) 05/29/2024 9:07 AM EST Respiratory Rate 16 05/29/2024 9:07 AM EST Oxygen Saturation 98% 05/29/2024 9:07 AM EST Inhaled Oxygen Concentration - - Weight 85.7 kg (189 lb) 05/29/2024 9:07 AM EST Height 167.6 cm (5' 6 ) 05/29/2024 9:07 AM EST Body Mass Index 30.51 05/29/2024 9:07 AM EST Plan of Treatment Upcoming Encounters Date Type Department Care Team (Late st Contact Info) Description 04/30/2025 11:40 AM EST Office Visit [facility] [address] [place] [id number] Claudio Thompson MD [address] [place] [phone] Health Maintenance Due Date Last Done Comments [facility]-Bone Density Scan 1955 [facility]-Hepatitis C Screening 1955 [facility]-/Child/Adol SDOH Screenings 1955 [facility]- SDOH Screenings 10/07/1971 [facility]-Adult SDOH Screenings 10/07/1971 CT Colonography 1998 Colonoscopy 1998 FIT-DNA 1998 FIT 1998 FOBT 1998 Sigmoidoscopy 1998 [facility]-Colorectal Cancer Screening 1998 [facility]-Breast Cancer Screening 10/07/2003 [facility]-Pneumococcal Vaccine: 50+ Years (1 of 1 - PCV) 10/07/2003 [facility]-Zoster Vaccines (1 of 2) 10/07/2003 [facility]-RSV Vaccine: 60+ Years or (1 - Risk 60-74 years 1-dose series) 2013 [facility]-Medicare Annual Wellness (AWV) 05/09/2023 05/09/2022 [facility]-Depression Screening 09/11/2024 09/12/2023 [id number] Vaccine (11 - Mixed Product risk 2023- season) 09/21/2024 03/23/2024, 06/11/2023, 04/27/2022, Additional history exists [facility]-Influenza Vaccine (#1) 02/08/202503/16, 04/21/2022, 04/21/2022, Additional history exists [facility]-DTaP,Tdap,and Td Vaccines (2 - Td or Tdap) 02/22/2030 02/23/2020 [facility]-Obesity Intervention Completed 05/29/2024, 0409/2023 HPV Vaccines Aged Out No longer eligi ble based on patient's age to complete this topic [facility]-HIB Vaccines Aged Out No longer e ligible based on patient's age to complete this topic [facility]-Hepatitis A Vaccines Aged Out No longer eligible based on patient's age to complete this topic [facility]-IPV Vaccines Aged Out No longer e ligible based on patient's age to complete this topic [facility]-Rotavirus Vaccines Aged Out No lo nger eligible based on patient's age to complete this topic Insurance MEDICARE Member Subscriber Plan / Payer (Ef fective 2018-Present) Name:Paola Lambert Member ID:[id number] Relation to Subscriber:Self Name:Paola Lambert Subscriber ID:[id number] Payer ID:MEDICARE Group ID:Not on file Type:Medicare Address: [place] [id number] Care Teams Checker Stocker Relationship Specialty Start Date End Date Fabrizio Pickett DO [address] [place] [address] PCP - General 06/01/24
--- NOTE | 2025-01-17 09:23 | CT_ITS ---
PROCEDURE INFORMATION: Exam: CTA Head With Contrast, Arteriography Exam date and time: 01/17/2025 10:07 AM Age: 69 years old Clinical indication: Other: Presyncope, left eye blurry vision TECHNIQUE: Imaging protocol: Computed tomographic angiography of the head with contrast. Exam focused on the arteries. 3D rendering (Not supervised by radiologist): MIP and/or 3D reconstructed images were created by the technologist. Radiation optimization: All CT scans at this facility use at least one of these dose optimization techniques: automated exposure control; mA and/or kV adjustment per patient size (includes targeted exams where dose is matched to clinical indication); or iterative reconstruction. Contrast material: ISOVUE; Contrast volume: 80 ml; Contrast route: INTRAVENOUS (IV); COMPARISON: CT HEAD/BRAIN WO CON 01/17/2025 10:05 AM FINDINGS: ANTERIOR CIRCULATION: Right internal carotid artery: Intracranial segment is patent with no significant stenosis. No aneurysm. Right middle cerebral artery: No occlusion or significant stenosis. No aneurysm. Right anterior cerebral artery: No occlusion or significant stenosis. No aneurysm. Left internal carotid artery: Intracranial segment is patent with no significant stenosis. No aneurysm. Left middle cerebral artery: No occlusion or significant stenosis. No aneurysm. Left anterior cerebral artery: No occlusion or significant stenosis. No aneurysm. POSTERIOR CIRCULATION: Right vertebral artery: No occlusion or significant stenosis. No aneurysm. Left vertebral artery: No occlusion or significant stenosis. No aneurysm. Basilar artery: No occlusion or significant stenosis. No aneurysm. Right posterior cerebral artery: No occlusion or significant stenosis. No aneurysm. Left posterior cerebral artery: No occlusion or significant stenosis. No aneurysm. Brain: No definite mass, mass effect, or midline shift. Cerebral ventricles: No ventriculomegaly. Orbital cavities: No abnormalities. Bones/joints: No acute fracture or focal bone lesions. Soft tissues: No masses or swelling. IMPRESSION: No large vessel occlusion. No acute intracranial abnormalities.
--- NOTE | 2025-01-17 09:23 | CT_ITS ---
PROCEDURE INFORMATION: Exam: CT Head Without Contrast Exam date and time: 01/17/2025 10:05 AM Age: 69 years old Clinical indication: Other: Presyncope, left eye blurry vision TECHNIQUE: Imaging protocol: Computed tomography of the head without contrast. Radiation optimization: All CT scans at this facility use at least one of these dose optimization techniques: automated exposure control; mA and/or kV adjustment per patient size (includes targeted exams where dose is matched to clinical indication); or iterative reconstruction. COMPARISON: CT HEAD/BRAIN WO CON 01/17/2025 10:05 AM FINDINGS: Brain: No acute intracranial hemorrhage.. There is mild diffuse heterogeneity of the white matter attenuation, consistent with chronic white matter ischemic changes. Cerebral ventricles: No ventriculomegaly. Paranasal sinuses: Visualized sinuses are unremarkable. No fluid levels. Mastoid air cells: Visualized mastoid air cells are well aerated. Bones: Degenerative changes in the temporomandibular joint No acute fracture. Soft tissues: Unremarkable. IMPRESSION: No acute intracranial hemorrhage..
--- NOTE | 2025-01-17 09:23 | CT_ITS ---
PROCEDURE INFORMATION: Exam: CTA Neck With Contrast Exam date and time: 01/17/2025 10:07 AM Age: 69 years old Clinical indication: Other: Presyncope, left eye blurry vision TECHNIQUE: Imaging protocol: Computed tomographic angiography of the neck with contrast. Exam focused on the cervical segments of the vasculature. 3D rendering (Not supervised by radiologist): MIP and/or 3D reconstructed images were created by the technologist. Radiation optimization: All CT scans at this facility use at least one of these dose optimization techniques: automated exposure control; mA and/or kV adjustment per patient size (includes targeted exams where dose is matched to clinical indication); or iterative reconstruction. Contrast material: ISOVUE; Contrast volume: 80 ml; Contrast route: INTRAVENOUS (IV); COMPARISON: CT HEAD/BRAIN WO CON 01/17/2025 10:05 AM FINDINGS: Right common carotid artery: No stenosis. No dissection or occlusion. Right internal carotid artery: No stenosis of the extracranial segment. No dissection or occlusion. Right external carotid artery: No occlusion or stenosis of the origin. Left common carotid artery: No significant stenosis of the extracranial segment. No dissection or occlusion. Calcified plaque in the carotid bulb causes less than 50% stenosis. Left internal carotid artery: No stenosis of the extracranial segment. No dissection or occlusion. Left external carotid artery: No occlusion or stenosis of the origin. Right vertebral artery: No stenosis. No dissection or occlusion. Left vertebral artery: No stenosis. No dissection or occlusion. Soft tissues: No masses or edema. Bones/joints: No acute fracture, subluxations, or bone lesions. IMPRESSION: 1. No significant arterial stenosis or occlusion in the neck. 2. Plaque in the left carotid bulb causes less than 50% stenosis. REFERENCES: NASCET CRITERIA. The degree of stenosis in the cervical segment of the internal carotid artery is based on NASCET criteria. Normal is no stenosis. Mild is less than 50% stenosis. Moderate is 50-69% stenosis. Severe is 70% to 99% stenosis. Total occlusion is no detectable patent lumen.
--- NOTE | 2025-01-17 09:28 | XR_ITS ---
PROCEDURE INFORMATION: Exam: XR Chest Exam date and time: 01/17/2025 9:33 AM Age: 69 years old Clinical indication: Cough and shortness of breath and other: Syncope, cough TECHNIQUE: Imaging protocol: Radiologic exam of the chest. Views: 1 view. COMPARISON: No relevant prior studies available. FINDINGS: Lungs: Unremarkable. No consolidation. Pleural spaces: Unremarkable. No pleural effusion. No pneumothorax. Heart/Mediastinum: Unremarkable. No cardiomegaly. Bones/joints: Unremarkable. IMPRESSION: No acute findings.
[2025-01-17 09:33] LABS: Chloride 106 mmol/L (98-107)
[2025-01-17 09:34] LABS: Albumin Level 4.6 g/dl (3.5-5.0); Potassium 4.0 mmoL/L (3.5-5.1); Sodium 141 mmol/L (136-145)
[2025-01-17 09:35] LABS: Hematocrit 35.6 % (37.0-47.0); Hemoglobin 11.0 g/dL (12.2-16.2); Immature Granulocytes % 1.3 %; Mean Corpuscular HGB Conc 30.9 g/dL (31.8-35.4); Mean Corpuscular Hemoglobin 28.9 pg (27.0-31.2); Mean Corpuscular Volume 93.7 fl (81-99); Nucleated Red Blood Cells % 0 %; Platelet Count 229 K/mm3 (142-424); Red Blood Count 3.80 M/mm3 (4.20-5.40); Red Cell Distribution Width-SD 45.0 fL; White Blood Count 8.6 K/mm3 (4.8-10.8)
[2025-01-17 09:37] LABS: Alanine Aminotransferase 14 U/L (12-78); Albumin/Globulin Ratio 1.4 (1.1-1.8); Alkaline Phosphatase 108 U/L (38-126); Anion Gap 16.0 mEq/L (5-15); Aspartate Amino Transferase 27 U/L (14-36); Bilirubin,Total 0.5 mg/dl (0.2-1.3); Blood Urea Nitrogen 22 mg/dl (7-17); Calcium 9.1 mg/dl (8.4-10.2); Carbon Dioxide 23 mmol/L (22.0-30.0); Creatinine Clearance Estimated 44 mL/min (50-200); Creatinine,Serum 1.50 mg/dl (0.52-1.04); Estimated Glomerular Filt Rate 34 ml/min (>60); GFR (African American) 41 ML/MIN (>60); Globulin 3.2 g/dL (1.3-3.2); Glucose 114 mg/dl (74-100); Total Protein,Serum 7.8 g/dl (6.3-8.2)
[2025-01-17 09:46] LABS: NT Pro Brain Natriuretic Pep. 184 pg/mL (0-125)
[2025-01-17 09:49] LABS: Troponin I < 0.01 ng/ml (0.00-0.034)
[2025-01-17] MEDS: RINGERS SOLUTION,LACTATED 500 ML 999 ML IV (09:51)
[2025-01-17 10:03] LABS: Bilirubin,Urine Negative (Negative); Color,Urine YELLOW (Yellow); Glucose,Urine (UA) Negative (Negative); Ketones,Urine Negative (Negative); Leukocyte Esterase,Urine 1+ (Negative); Microscopic, Urine URINE MICROSCOPIC (MICROSCOPIC); PH,Urine 6.0 (5.0-8.5); Protein,Urine Negative (Negative); Specific Gravity, Urine 1.020 (1.005-1.030); Urobilinogen,Urine 0.2 EU/dl (0.2)
[2025-01-17] MEDS: 0.9 % SODIUM CHLORIDE 50 ML VIAL IV (10:08)
[2025-01-17] MEDS: SODIUM CHLORIDE 0.9% 10ML SYR (RAD ONLY) 10 ML IV (10:08)
[2025-01-17] MEDS: IOPAMIDOL-370 (76%);100ML BOTTLE 80 ML IV (10:08)
[2025-01-17 10:12] LABS: Bacteria,Urine 1+ /lpf; Hyaline Casts,Urine OCC #/lpf (0)
[2025-01-17 10:30] LABS: RBC Morphology Normal; Total Cells Counted 100
[2025-01-17 12:53] LABS: Troponin I < 0.01 ng/ml (0.00-0.034)
--- NOTE | 2025-01-23 03:15 | PC.NURSE ---
POS urine cx. Pt has 0 symtoms, no intervention needed per Dr. Perez.
== END 2025-01-17 13:40 | disposition home or self-care (01) ==
PROVIDERS: Emergency Provider Student in an Organized Health Care Education/Training Program; PCP Internal Medicine
DX: R55 Syncope and collapse (principal); H53.8 Other visual disturbances; N18.30 Chronic kidney disease, stage 3 unspecified
CPT/HCPCS: 70450; 70496; 70498; 71045; 80053; 81001; 83880; 84484; 85007; 85025; 85027; 87086; 87088; 87186; 93005; 99285; J7120; Q9967

== ENCOUNTER 2025-01-22 11:45 | Outpatient (CLI) | payer MEDICARE, OTHER, SELFPAY ==
--- OUTSIDE RECORDS SUMMARY | 2025-01-25 12:42 | XMS_ITS | Clinical Summary ---
Author Organization Healthcare Address [address] [place] [address] Care Team Providers Care Designer And Patternmaker Name Role Phone Fabrizio Pickett DO Primary Care Provider [phone] Allergies No known active allergies Medications Ascorbic [...] 07/11/2023 Active cholecalciferol (Vitamin D-3) 50 MCG (2000 UT) capsuleIndicati ons:Vitamin D deficiency TAKE ONE [...] Description 04/30/2025 11:40 AM EST Office Visit [facility] [address] [place] [address] Claudio Thompson MD [address] [place] [phone] Health Maintenance Due Date Last Done [...] (AWV) 05/09/2023 05/09/2022 UKY-Depression Screening 09/11/2024 09/12/2023 [id number] Vaccine (11 - Mixed Product risk 2023- [...] Payer (Ef fective 2018-Present) Name:Paola Lambert Member ID:[id number] Relation to Subscriber:Self Name:Paola Lambert Subscriber ID:[id number] Payer ID:MEDICARE Group ID:Not on file Type:Medicare Address: [place] [id number] Care Teams Designer And Patternmaker Relationship Specialty Start Date End Date Fabrizio Pickett DO [address] [place] [address] PCP - General 06/01/24
== END 2025-01-22 23:59 ==
LOC: LAB.DROPOF 01-25 12:40
PROVIDERS: PCP Internal Medicine; Visit Provider Internal Medicine
DX: N18.31 Chronic kidney disease, stage 3a (principal)
CPT/HCPCS: 84156

== ENCOUNTER 2025-02-25 08:23 | Emergency (ER) | payer MEDICARE, OTHER, SELFPAY ==
[2025-02-25] VITALS (9 sets, daily range): BP systolic 153–179; BP diastolic 72–91; PULSE 67–106; RESP 12–16; TEMP 36.7–37.1; O2SAT 95–99; BMI 28.7
--- NOTE | 2025-02-25 08:39 | CT_ITS ---
FINAL REPORT TECHNIQUE: IV contrast enhanced exam This study was performed with techniques to keep radiation doses as low as reasonably achievable, (ALARA). Individualized dose reduction techniques using automated exposure control or adjustment of mA and/or kV according to the patient's size were employed. CLINICAL HISTORY: severe RLQ pain COMPARISON: None FINDINGS: Abdomen: Lung bases are clear. A small hiatal hernia is present. The gallbladder is contracted liver has an unremarkable CT appearance. The spleen, pancreas and adrenal glands are unremarkable. Kidneys show no mass or obstruction. No bowel obstruction or fluid collection is seen. The central mesenteric vessels are widely patent. A tiny umbilical hernia is noted. Pelvis: The appendix is normal in appearance. The uterus has been surgically resected. There is mild sigmoid diverticulosis present. There appears to be subtle inflammatory change surrounding a proximal sigmoid diverticulum best seen on axial images #[id number] of series 4. This may represent minimal changes of diverticulitis. No fluid collection or adenopathy is seen. IMPRESSION: 1. No evidence of appendicitis or bowel obstruction. 2. Questionable minimal sigmoid diverticulitis. Reviewed, Interpreted and Dictated by Rena Kraus MD Transcribed by Jayda Lin Authenticated and . [facility]
--- NOTE | 2025-02-25 08:41 | HMH.EDGENADL ---
Discharge Plan Disposition Patient Disposition: Home, Self-Care Prescriptions Prescriptions: New levofloxacin 750 mg tablet 750 mg PO DAILY 10 Days Qty: 10 0RF metronidazole 500 mg tablet 500 mg PO Q6H 10 Days Qty: 40 0RF ondansetron 4 mg tablet,disintegrating 4 mg PO Q8H PRN (Reason: nausea and vomiting) 4 Days Qty: 12 0RF No Action epinephrine 0.3 mg/0.3 mL auto-injector 0.3 mg SQ cholecalciferol (vitamin D3) [D3-2000] 50 mcg (2,000 unit) capsule 50 mcg PO DAILY Patient Comments: TAKE ONE CAPSULE BY MOUTH DAILY cetirizine 10 mg tablet 10 mg PO fluticasone propionate 50 mcg/actuation spray,suspension intranasal Patient Comments: SHAKE LIQUID AND USE 1 SPRAY IN EACH NOSTRIL DAILY ramelteon [Rozerem] 8 mg tablet 8 mg PO HS PRN (Reason: insomnia) Qty: 90 2RF enalapril maleate 5 mg tablet 5 mg PO DAILY Qty: 90 1RF trazodone 50 mg tablet See Rx Instructions .ROUTE .COMPLEX Qty: 90 3RF Dose Instruction: TAKE 1 TABLET BY MOUTH EVERY NIGHT AT BEDTIME Rx Instructions: TAKE 1 TABLET BY MOUTH EVERY NIGHT AT BEDTIME Referrals Follow up/Referrals: Fabrizio Pickett DO [Primary Care Provider, Family Practice] - See instructions Activity Restrictions/Add. Instructions Additional Instructions/Restrictions: At this time it was felt you are safe to be discharged home. If new or worsening symptoms please do not hesitate to return the emergency department. Please eat a bland diet over the weekend and follow-up with Dr. Pickett early next week as discussed. Please take your medications as prescribed. Clinical Impressions Clinical Impression: Diverticulitis Instructions Patient Instructions: DI for Diverticulitis Print Language Print Language: Divehi Discharge ED Provider: Etienne Schaefer General Adult HPI General Chief complaint: Abdominal Pain Stated complaint: Pain Lower Right side/abd Time Seen by Provider: 02/25/25 08:33 History of Present Illness HPI narrative: Patient is a 69-year-old female with past medical history of CKD 3 who presents to the emergency department for evaluation of abdominal pain. Onset was acute over the last 48 to 72 hours periumbilical and vague which migrated to the right lower quadrant with associated nausea and diarrhea. No vomiting. No chest pain reported. Past abdominal surgical history of laparoscopic hysterectomy. Patient still has her appendix and gallbladder. No other acute complaints at this time. Patient is non-smoker. Please note that above description of symptoms, in this electronic medical record under categorization of recalled from ER triage doctor by RN are reflective of an initial nursing assessment, however, is not reflective of my full history and physical exam that was personally taken and clarified. Consequentially, this preceding description of symptoms, which may include the patient's categorized chief complaint in the EMR, do not reflect my personal clinical impression, and the ultimate description of history of present illness and patient stated complaints should be deferred to this section of the note. Unless stated otherwise or congruent with this section of the note, additional signs, symptoms, or incongruence should be interpreted as inaccurate with my clinical impression. Related Data Home Medications ?Medication ?Instructions ?Recorded ?Confirmed cholecalciferol (vitamin D3) 50 50 mcg PO DAILY 10/03/23 01/22/25 mcg (2,000 unit) capsule (D3-2000) epinephrine 0.3 mg/0.3 mL 0.3 mg SQ 12/15/24 01/22/25 injection, auto-injector cetirizine 10 mg tablet 10 mg PO 01/13/25 01/22/25 fluticasone propionate 50 intranasal 01/13/25 01/22/25 mcg/actuation nasal spray,suspension Previous Rx's ?Medication ?Instructions ?Recorded ramelteon 8 mg tablet (Rozerem) 8 mg PO HS PRN insomnia #90 tabs 12/08/24 enalapril maleate 5 mg tablet 5 mg PO DAILY #90 tabs 01/12/25 trazodone 50 mg tablet See Rx Instructions .Route 01/25/25 .COMPLEX #90 tabs levofloxacin 750 mg tablet 750 mg PO DAILY diverticulitis 10 02/25/25 days #10 tabs metronidazole 500 mg tablet 500 mg PO Q6H Diverticulitis 10 02/25/25 days #40 tabs ondansetron 4 mg disintegrating 4 mg PO Q8H PRN nausea and 02/25/25 tablet vomiting 4 days #12 tabs Allergies Allergy/AdvReac Type Severity Reaction Status Date / Time No Known Allergies Allergy Verified 01/22/25 11:22 [facility] Disclaimer: The information contained in this section may have been updated after the patient was seen, as this information can be updated by other users. Medical History Arthritis Kidney disease, chronic, stage III (GFR 30-59 ml/min) Surgical History History of colonoscopy History of hysterectomy Family History Other Asthma Hyperlipidemia Hypertension Kidney disease Thyroid disorder Social History Smoking Status: Never smoker alcohol intake: never substance use type: denies use current occupational status: retired Travel in the last 8 weeks?: None Have you lived/traveled outside US in past 30 days?: No Contact w/someone who lives/traveled outside US past 30 days?: No Exposure to someone with infectious disease in past 14 days?: No Do you have a fever (greater than 100.4 F or 38 C)?: No Have you tested positive for COVID-19?: No Exposed to someone with COVID-19 in past 14 days?: No Do you have a sore throat?: No Do you have a cough?: No Do you have any weakness?: No Do you have any diarrhea?: No Are you experiencing any unusual bleeding?: No Do you have any muscle aches/pain?: No Do you have any abdominal pain?: Yes Are you experiencing loss of taste or smell?: No Other Medical History Have you received the Pneumonia Vaccine: Yes (2023) ROS Obtained: Yes Systems reviewed as appropriate & no additional complaints except as documented Physical Exam General General appearance: alert Comment: Appearing uncomfortable in bed Head Head exam: atraumatic and normocephalic Eye Eye exam: Present PERRL and EOMI ENT ENT exam: Present mucous membranes moist Neck Neck exam: Present normal inspection Chest Chest inspection: Present normal inspection and symmetric chest wall rise Respiratory Respiratory exam: Absent respiratory distress Cardiovascular Cardiovascular exam: Present regular rate and normal rhythm Abdominal Exam Abdominal exam: Present soft and tenderness (Right lower quadrant); Absent rebound or rigidity Extremities Exam Extremities exam: Present normal inspection Neurological Exam Neurological exam: Present alert Psychiatric Psychiatric exam: Present normal affect Skin Skin exam: Present warm and dry Medical Decision Making Medical Records Screening: Per USPSTF and CDC recommendations, given the prevalence of disease in our region, it is our hospital?s policy to screen for HIV and viral Hepatitis for all patients aged 18 and over and those with ongoing risk factors. Jez Inquiry Pt receiving controlled substance: No Vital Signs: 02/25/25 08:35 02/25/25 08:41 02/25/25 09:08 Temperature 98.8 F Temperature Source Oral Pulse Rate 86 91 H Pulse Rate [Left Radial] 106 H Respiratory Rate 12 Blood Pressure 161/72 H 179/75 H Blood Pressure [Right Arm] 157/80 H Blood Pressure Mean [Right Arm] 105 02 Sat by Pulse Oximetry 96 96 96 Oxygen Delivery Method Room Air Room Air Room Air 02/25/25 09:20 02/25/25 09:40 02/25/25 10:00 Temperature Temperature Source Pulse Rate 80 69 71 Pulse Rate [Left Radial] Respiratory Rate Blood Pressure 174/91 H 153/80 H 163/80 H Blood Pressure [Right Arm] Blood Pressure Mean [Right Arm] 02 Sat by Pulse Oximetry 99 97 97 Oxygen Delivery Method Room Air 02/25/25 10:20 Temperature Temperature Source Pulse Rate 67 Pulse Rate [Left Radial] Respiratory Rate Blood Pressure 162/82 H Blood Pressure [Right Arm] Blood Pressure Mean [Right Arm] 02 Sat by Pulse Oximetry 95 Oxygen Delivery Method Lab Data Lab Results 02/25/25 08:36: WBC 7.5, RBC 3.96 L, Hgb 11.7 L, Hct 36.0 L, MCV 90.9, MCH 29.5, MCHC 32.5, RDW 13.5, Plt Count 246, MPV 10.6 H, Neut % (Auto) 35.1 L, Lymph % (Auto) 36.9, [place] % (Auto) 26.1 H, Eos % (Auto) 0.9, Baso % (Auto) 0.3, Neut # (Auto) 2.6, Lymph # (Auto) 2.8, [place] # (Auto) 2.0 H, Eos # (Auto) 0.1, Baso # (Auto) 0.0, Total Counted 100, Neutrophils % (Manual) 46, Lymphocytes % (Manual) 30, Monocytes % (Manual) 20 H, Eosinophils % (Manual) 4 H, Platelet Estimate Normal, RBC Morphology Normal, Sodium 139, Potassium 4.0, Chloride 107, Carbon Dioxide 21 L, Anion Gap 15.0, BUN 22 H, Creatinine 1.50 H, Estimated Creat Clear 44, Estimated GFR 34 L, Est GFR ( Amer) 41 L, Glucose 117 H, Calcium 9.7, Total Bilirubin 0.7, AST 26, ALT 12, Alkaline Phosphatase 86, Total Protein 8.1, Albumin 4.8, Globulin 3.3 H, Albumin/Globulin Ratio 1.5, Lipase 230, HCV Ab SUZIE w/Rflx PCR Qn Negative, HIV Ag/Ab Combo Qual Negative 02/25/25 10:47: Urine Color Yellow, Urine Appearance Clear, Urine pH 5.5, Ur Specific [place] 1.010, Urine Protein Negative, Urine Glucose (UA) Negative, Urine Ketones Negative, Urine Blood Trace-l, Urine Nitrate Negative, Urine Bilirubin Negative, Urine Urobilinogen 0.2, Ur Leukocyte Esterase Negative, Urine RBC Occasional, Urine WBC None, Ur Squamous Epith Cells 3-5, Urine Bacteria None, Hyaline Casts Occ 02/25/25 08:36 02/25/25 08:36 Orders (Tests/Meds): ED MEDICATIONS Discontinued Medications Generic Name Dose Route Start Last Admin Trade Name Freq PRN Reason Stop Dose Admin Acetaminophen 1,000 mg 02/25/25 08:39 02/25/25 09:12 Acetaminophen 1,000mg/100ml Vial IV 02/25/25 08:40 1,000 mg ONCE ONE Administration Lactated Ringer's 1,000 mls @ 999 mls/hr 02/25/25 08:39 02/25/25 10:47 Lactated Ringer's 1000 Ml Bag IV 02/25/25 09:39 Infused .Q1H1M ONE Infusion Iopamidol 75 ml 02/25/25 09:08 02/25/25 09:09 Iopamidol-370 (76%);100ml Bottle IV 02/25/25 09:09 75 ml ONCE ONE Administration Morphine Sulfate 4 mg 02/25/25 08:39 02/25/25 09:15 Morphine 4mg/Ml Syringe IV 02/25/25 08:40 4 mg ONCE ONE Administration Ondansetron HCl 4 mg 02/25/25 08:39 02/25/25 09:14 Ondansetron 4mg/2ml Vial IV 02/25/25 08:40 4 mg ONCE ONE Administration Sodium Chloride 10 ml 02/25/25 09:08 02/25/25 09:09 Sodium Chloride 0.9% 10ml Syr (Rad Only) IV 02/25/25 09:09 10 ml ONCE ONE Administration ORDERS Category Date Time Status CT abdomen pelvis w con Stat Cat Scan 02/25/25 08:39 Completed CBC w/Auto Diff [Complete Blood Count Auto Diff] Stat Lab 02/25/25 08:36 Completed CMP [Comprehensive Metabolic Panel] Stat Lab 02/25/25 08:36 Completed HIV Combo Stat Lab 02/25/25 08:36 Completed Hepatitis C Ab Qual. W/ RFX Stat Lab 02/25/25 08:36 Completed Lipase Stat Lab 02/25/25 08:36 Completed UA [Urinalysis and Microscopic] Stat Lab 02/25/25 10:47 Completed Medical Decision Narrative: In summary patient is 69-year-old female past medical history described above who presents to the emergency department for evaluation of pain that migrated to her right lower quadrant with associated nausea. Patient is hemodynamically stable and appearing uncomfortable upon arrival, afebrile. Differential diagnosis includes appendicitis, urinary tract infection, mesenteric adenitis, among others. Workup will be conducted with hematologic labs, urinalysis, CT abdomen pelvis IV contrast. Initial measures include multimodal pain control, crystalloid bolus. NSAIDs will be deferred given history of CKD. Initial workup reviewed by me, no significant leukocytosis no transfusable anemia no thrombocytopenia. Patient has stable CKD no critical electrolyte abnormalities lipase normal. Urinalysis interpreted by me and not consistent with infection. CT imaging no evidence of appendicitis or bowel obstruction questionable minimal sigmoid diverticulitis. On repeat evaluation patient does have pain in her left lower quadrant it may be that all of this is from her sigmoid diverticulitis she does have diarrhea and pain in the correct area to support this and right lower quadrant pain may be referred. She is hemodynamically stable and underwent p.o. trial at bedside. Given that she has uncomplicated mild sigmoid diverticulitis is appropriate for outpatient management at this time will be discharged with a course of antibiotics and antiemetic and will follow-up with Dr. Pickett her PCP early next week and she was given multiple return precautions and verbalized understanding. Circular Saw Operator disclaimer Much of this encounter note is an electronic coverstitch elastic attacher spoken language to printed text. Electronic coverstitch elastic attacher of the spoken language may permit errors. Although I have reviewed the note, some errors may still exist. Critical Care Critical Care Time Critical Care Time: No
[2025-02-25 08:44] LABS: Hematocrit 36.0 % (37.0-47.0); Hemoglobin 11.7 g/dL (12.2-16.2); Immature Granulocytes % 0.7 %; Mean Corpuscular HGB Conc 32.5 g/dL (31.8-35.4); Mean Corpuscular Hemoglobin 29.5 pg (27.0-31.2); Mean Corpuscular Volume 90.9 fl (81-99); Nucleated Red Blood Cells % 0 %; Platelet Count 246 K/mm3 (142-424); Red Blood Count 3.96 M/mm3 (4.20-5.40); Red Cell Distribution Width-SD 45.2 fL; White Blood Count 7.5 K/mm3 (4.8-10.8)
[2025-02-25 08:52] LABS: Alanine Aminotransferase 12 U/L (12-78); Albumin Level 4.8 g/dl (3.5-5.0); Albumin/Globulin Ratio 1.5 (1.1-1.8); Alkaline Phosphatase 86 U/L (38-126); Anion Gap 15.0 mEq/L (5-15); Aspartate Amino Transferase 26 U/L (14-36); Bilirubin,Total 0.7 mg/dl (0.2-1.3); Blood Urea Nitrogen 22 mg/dl (7-17); Calcium 9.7 mg/dl (8.4-10.2); Carbon Dioxide 21 mmol/L (22.0-30.0); Chloride 107 mmol/L (98-107); Creatinine Clearance Estimated 44 mL/min (50-200); Creatinine,Serum 1.50 mg/dl (0.52-1.04); Estimated Glomerular Filt Rate 34 ml/min (>60); GFR (African American) 41 ML/MIN (>60); Globulin 3.3 g/dL (1.3-3.2); Glucose 117 mg/dl (74-100); Lipase 230 U/L (23-300); Potassium 4.0 mmoL/L (3.5-5.1); Sodium 139 mmol/L (136-145); Total Protein,Serum 8.1 g/dl (6.3-8.2)
--- NOTE | 2025-02-25 08:52 | HMH.ITSTN ---
per ER staff, do not wait on lab results before CT scan.
[2025-02-25 09:05] LABS: RBC Morphology Normal; Total Cells Counted 100
[2025-02-25] MEDS: IOPAMIDOL-370 (76%);100ML BOTTLE 75 ML IV (09:09)
[2025-02-25] MEDS: SODIUM CHLORIDE 0.9% 10ML SYR (RAD ONLY) 10 ML IV (09:09)
[2025-02-25] MEDS: ACETAMINOPHEN 1,000MG/100ML VIAL 1000 MG IV (09:12)
[2025-02-25] MEDS: LACTATED RINGERS 1000ML 1,000 ML 999 ML IV (09:12)
[2025-02-25] MEDS: ONDANSETRON 4MG/2ML VIAL 4 MG IV (09:14)
[2025-02-25] MEDS: MORPHINE 4MG/ML SYRINGE 4 MG IV (09:15)
[2025-02-25 10:05] LABS: Hepatitis C Ab Qual. W/ RFX NEGATIVE (Negative)
[2025-02-25 10:56] LABS: Microscopic, Urine URINE MICROSCOPIC (MICROSCOPIC)
[2025-02-25 11:00] LABS: Bilirubin,Urine Negative (Negative); Color,Urine YELLOW (Yellow); Glucose,Urine (UA) Negative (Negative); Ketones,Urine Negative (Negative); Leukocyte Esterase,Urine Negative (Negative); PH,Urine 5.5 (5.0-8.5); Protein,Urine Negative (Negative); Specific Gravity, Urine 1.010 (1.005-1.030); Urobilinogen,Urine 0.2 EU/dl (0.2)
[2025-02-25 11:09] LABS: Hyaline Casts,Urine OCC #/lpf (0); RBC,Urine Occasional #/hpf (0-3)
== END 2025-02-25 11:50 | disposition home or self-care (01) ==
PROVIDERS: Emergency Provider Emergency Medicine; PCP Internal Medicine
DX: K57.32 Diverticulitis of large intestine without perforation or abscess without bleeding (principal); R10.31 Right lower quadrant pain; R11.2 Nausea with vomiting, unspecified
CPT/HCPCS: 74177; 80053; 81001; 83690; 85007; 85025; 86803; 87389; 96361; 96374; 96375; 99285; J0131; J2270; J2405; J7120; Q9967

== ENCOUNTER 2025-03-24 12:40 | Outpatient (CLI) | payer MEDICARE, OTHER, SELFPAY ==
--- NOTE | 2025-03-24 12:43 | XR_ITS ---
FINAL REPORT CLINICAL HISTORY: cough/chest congestion COMPARISON: None FINDINGS: PA and lateral views of the chest are obtained. There is no prior exam for comparison. The cardiac and mediastinal silhouettes are within normal limits. The lungs are clear. There is no pleural effusion, pneumothorax, or acute osseous abnormality. IMPRESSION: No radiographic evidence of acute cardiac or pulmonary disease. Reviewed, Interpreted and Dictated by Josy Sparks MD Transcribed by Jayda Lin Authenticated and [facility]
--- OUTSIDE RECORDS SUMMARY | 2025-03-24 12:44 | XMS_ITS | Clinical Summary ---
Author Organization Healthcare Address [address] [place] [address] Care Team Providers Care In Store Marketer Name Role Phone Fabrizio Pickett DO Primary Care Provider [phone] Allergies No known active allergies Medications Ascorbic [...] Description 04/30/2025 11:40 AM EST Office Visit [facility] [address] [place] [address] Claudio Thompson MD [address] [place] [phone] Health Maintenance Due Date Last Done [...] (AWV) 05/09/2023 05/09/2022 UKY-Depression Screening 09/11/2024 09/12/2023 [id number] Vaccine (11 - Mixed Product risk 2023- season) 02/08/2025 03/23/2024, 06/11/2023, 04/27/2022, Additional history exists UKY-Influenza [...] Payer (Ef fective 2018-Present) Name:Paola Lambert Member ID:[id number] Relation to Subscriber:Self Name:Paola Lambret Subscriber ID:[id number] Payer ID:MEDICARE Group ID:Not on file Type:Medicare Address: [place] [id number] Care Teams In Store Marketer Relationship Specialty Start Date End Date Fabrizio Pickett DO [address] [place] [address] PCP - General 06/01/24
[2025-03-24 15:23] LABS: Coronavirus 19, PCR Not Detected (NotDetected); Influenza A, PCR Not Detected (NotDetected); Influenza B, PCR Not Detected (NotDetected)
== END 2025-03-24 23:59 | disposition home or self-care (01) ==
LOC: RAD 12:42
PROVIDERS: PCP Internal Medicine; Visit Provider Nurse Practitioner
DX: J06.9 Acute upper respiratory infection, unspecified (principal); B97.89 Other viral agents as the cause of diseases classified elsewhere
CPT/HCPCS: 71046; 87631

== ENCOUNTER 2025-04-27 09:23 | Outpatient (CLI) | payer MEDICARE, OTHER, SELFPAY ==
[2025-04-27 09:33] LABS: Microscopic, Urine URINE MICROSCOPIC (MICROSCOPIC)
[2025-04-27 09:56] LABS: Hematocrit 37.4 % (37.0-47.0); Hemoglobin 11.3 g/dL (12.2-16.2); Mean Corpuscular HGB Conc 30.2 g/dL (31.8-35.4); Mean Corpuscular Hemoglobin 28.5 pg (27.0-31.2); Mean Corpuscular Volume 94.2 fl (81-99); Nucleated Red Blood Cells % 0 %; Platelet Count 255 K/mm3 (142-424); Red Blood Count 3.97 M/mm3 (4.20-5.40); Red Cell Distribution Width-SD 48.8 fL; White Blood Count 6.2 K/mm3 (4.8-10.8)
[2025-04-27 10:16] LABS: Bilirubin,Urine Negative (Negative); Color,Urine YELLOW (Yellow); Glucose,Urine (UA) Negative (Negative); Ketones,Urine Negative (Negative); Leukocyte Esterase,Urine 1+ (Negative); PH,Urine 5.5 (5.0-8.5); Protein,Urine Negative (Negative); Specific Gravity, Urine 1.025 (1.005-1.030); Urobilinogen,Urine 0.2 EU/dl (0.2)
[2025-04-27 10:38] LABS: Albumin Level 5.0 g/dl (3.5-5.0); Anion Gap 13.3 mEq/L (5-15); Bacteria,Urine Trace /lpf; Blood Urea Nitrogen 21 mg/dl (7-17); Calcium 10.4 mg/dl (8.4-10.2); Carbon Dioxide 24 mmol/L (22.0-30.0); Chloride 106 mmol/L (98-107); Creatinine,Serum 1.40 mg/dl (0.52-1.04); Estimated Glomerular Filt Rate 37 ml/min (>60); GFR (African American) 45 ML/MIN (>60); Glucose 96 mg/dl (74-100); Phosphorous 4.4 mg/dl (2.5-4.5); Potassium 4.3 mmoL/L (3.5-5.1); RBC,Urine Occasional #/hpf (0-3); Sodium 139 mmol/L (136-145); WBC,Urine Occasional #/hpf (0-3)
== END 2025-04-27 23:59 | disposition home or self-care (01) ==
LOC: LAB 09:24
PROVIDERS: PCP Internal Medicine; Visit Provider Student in an Organized Health Care Education/Training Program
DX: N18.30 Chronic kidney disease, stage 3 unspecified (principal)
CPT/HCPCS: 36415; 80069; 81001; 82570; 84156; 85027; 87086

== ENCOUNTER 2025-05-24 16:20 | Emergency (ER) | payer MEDICARE, OTHER, SELFPAY ==
[2025-05-24 16:35] VITALS: BP 137/66; PULSE 79; RESP 16; TEMP 37; O2SAT 98; BMI 27.6
[2025-05-24 16:42] VITALS: BP 137/66
[2025-05-24 16:50] VITALS: O2SAT 99
--- NOTE | 2025-05-24 16:57 | ED_ITS ---
<Statement entered by Dayana Pack DO - 05/24/25 19:38> I was consulted by the ARA, and we discussed the complexity of problems being addressed. I approve the treatment and management plan for this patient's care in the emergency department, thus performing a substantial portion of the medical decision making. Dayana Pack DO Discharge Plan Disposition Patient Disposition: Home, Self-Care Prescriptions Prescriptions: New clindamycin HCl [Cleocin HCl] 300 mg capsule 300 mg PO BID 7 Days Qty: 14 0RF clindamycin HCl [Cleocin HCl] 300 mg capsule 300 mg PO BID 7 Days Qty: 14 0RF No Action epinephrine 0.3 mg/0.3 mL auto-injector 0.3 mg SQ benzonatate 100 mg capsule 100 mg PO TID PRN (Reason: cough) Qty: 30 0RF guaifenesin [Mucinex] 600 mg tablet extended release 12hr 600 mg PO Q12H PRN (Reason: congestion) Qty: 20 0RF cholecalciferol (vitamin D3) [D3-2000] 50 mcg (2,000 unit) capsule 50 mcg PO DAILY Patient Comments: TAKE ONE CAPSULE BY MOUTH DAILY cetirizine 10 mg tablet 10 mg PO fluticasone propionate 50 mcg/actuation spray,suspension intranasal Patient Comments: SHAKE LIQUID AND USE 1 SPRAY IN EACH NOSTRIL DAILY ramelteon [Rozerem] 8 mg tablet 8 mg PO HS PRN (Reason: insomnia) Qty: 90 2RF enalapril maleate 5 mg tablet 5 mg PO DAILY Qty: 90 1RF trazodone 50 mg tablet See Rx Instructions .ROUTE .COMPLEX Qty: 90 3RF Dose Instruction: TAKE 1 TABLET BY MOUTH EVERY NIGHT AT BEDTIME Rx Instructions: TAKE 1 TABLET BY MOUTH EVERY NIGHT AT BEDTIME metronidazole 500 mg tablet 500 mg PO Q6H 10 Days Qty: 40 0RF ondansetron 4 mg tablet,disintegrating 4 mg PO Q8H PRN (Reason: nausea and vomiting) 4 Days Qty: 12 0RF Referrals Follow up/Referrals: Fabrizio Pickett DO [Primary Care Provider, Family Practice] - See instructions Activity Restrictions/Add. Instructions Additional Instructions/Restrictions: Keep covered for a couple days. Keep clean with soap and water. If any problems or concerns please return to the ED Clinical Impressions Clinical Impression: Abscess Instructions Patient Instructions: DI for Skin Abscess Print Language Print Language: Palauan Discharge ED Provider: Dayana Pack General Adult HPI General Chief complaint: Skin/Abscess/Foreign Body Stated complaint: large boil under right breast Time Seen by Provider: 05/24/25 16:47 Mode of Arrival: Ambulatory Source of Information: Patient Description of Symptoms (Recalled from ER Triage Doc. by RN): pt presents to the ED with a boil under her right breast. pt states she noticed the boil a week ago and over the past week it has got bigger and now is painful. pt reports nothing is making it better. History of Present Illness HPI narrative: 69-year-old female presents to the ED today with redness under her right breast. She says this started a week ago and over the past week it has gotten worse and painful. She has no fevers or chills. No nausea or vomiting. No other symptoms at this time. She says that she has had this 1 other time before and it had to be abscess Related Data Home Medications ?Medication ?Instructions ?Recorded ?Confirmed cholecalciferol (vitamin D3) 50 50 mcg PO DAILY 03/24/25 mcg (2,000 unit) capsule (D3-2000) epinephrine 0.3 mg/0.3 mL 0.3 mg SQ 12/15/24 03/24/25 injection, auto-injector cetirizine 10 mg tablet 10 mg PO 01/13/25 03/24/25 fluticasone propionate 50 intranasal 01/13/25 03/24/25 mcg/actuation nasal spray,suspension Previous Rx's ?Medication ?Instructions ?Recorded ramelteon 8 mg tablet (Rozerem) 8 mg PO HS PRN insomni a #90 tabs 12/08/24 enalapril maleate 5 mg tablet 5 mg PO DAILY #90 tabs 0 01/12/25 trazodone 50 mg tablet See Rx Instructions .Route 0 01/25/25 .COMPLEX #90 tabs metronidazole 500 mg tablet 500 mg PO Q6H Diverticulit is 10 02/25/25 days #40 tabs ondansetron 4 mg disintegrating 4 mg PO Q8H PRN nausea and 02/25/25 tablet vomiting 4 days #12 tabs benzonatate 100 mg capsule 100 mg PO TID PRN cough #30 caps 03/24/25 guaifenesin 600 mg tablet, 600 mg PO Q12H PRN congesti on #20 03/24/25 extended release 12 hr (Mucinex) tabs clindamycin HCl 300 mg capsule 300 mg PO BID 7 days #1 4 caps 05/24/25 (Cleocin HCl) clindamycin HCl 300 mg capsule 300 mg PO BID 7 days #1 4 caps 05/24/25 (Cleocin HCl) Allergies Allergy/AdvReac Type Severity Reaction Status Date / Time No Known Allergies Allergy Verified 03/24/25 11:34 [facility] Disclaimer: The information contained in this section may have been updated after the patient was seen, as this information can be updated by other users. Medical History (Updated 05/24/25 @ 17:48 by Yumiko Sepulveda (ED), [employer]) Viral upper respiratory infection Viral upper respiratory tract infection with cough Arthritis Kidney disease, chronic, stage III (GFR 30-59 ml/min) Surgical History History of colonoscopy History of hysterectomy Family History Other Asthma Hyperlipidemia Hypertension Kidney disease Thyroid disorder Social History Smoking Status: Never smoker alcohol intake: never substance use type: denies use current occupational status: retired Travel in the last 8 weeks?: None Have you lived/traveled outside [place] in past 30 days?: No Contact w/someone who lives/traveled outside [place] past 30 days?: No Exposure to someone with infectious disease in past 14 days?: No Do you have a fever (greater than 100.4 F or 38 C)?: No Have you tested positive for COVID-19?: No Exposed to someone with COVID-19 in past 14 days?: No Do you have a sore throat?: No Do you have a cough?: No Do you have any weakness?: No Do you have any diarrhea?: No Are you experiencing any unusual bleeding?: No Do you have any muscle aches/pain?: No Do you have any abdominal pain?: No Are you experiencing loss of taste or smell?: No Other Medical History Have you received the Pneumonia Vaccine: No ROS Obtained: Yes Systems reviewed as appropriate & no additional complaints except as documented Constitutional Constitutional: Reports as per HPI Physical Exam General General appearance: alert and in no apparent distress Head Head exam: atraumatic and normocephalic Eye Eye exam: Present PERRL and EOMI ENT ENT exam: Present normal oropharynx and mucous membranes moist Neck Neck exam: Present full ROM and trachea midline Chest Chest inspection: Present abscess Respiratory Respiratory exam: Present normal lung sounds bilaterally Cardiovascular Cardiovascular exam: Present regular rate, normal rhythm, normal heart sounds, +S1 and +S2 Extremities Exam Extremities exam: Present full ROM Neurological Exam Neurological exam: Present alert and oriented X3 Skin Skin exam: Present warm and dry Medical Decision Making Medical Records Screening: Per USPSTF and CDC recommendations, given the prevalence of disease in our region, it is our hospital?s policy to screen for HIV and viral Hepatitis for all patients aged 18 and over and those with ongoing risk factors. Jez Inquiry Pt receiving controlled substance: No Jez was queried for this patient: No Vital Signs: 05/24/25 16:35 05/24/25 16:35 05/24/25 16:42 Temperature 98.6 F 98.6 F Temperature Source Oral Oral Pulse Rate 79 Pulse Rate [Right] 79 Respiratory Rate 16 16 Blood Pressure 137/66 137/66 Blood Pressure [Right Arm] 137/66 Blood Pressure Mean 89 Blood Pressure Mean [Right Arm] 89 Blood Pressure Source Automatic Cuff Blood Pressure Source [Right Arm] Automatic Cuff Blood Pressure Position Supine Blood Pressure Position [Right Arm] Supine 02 Sat by Pulse Oximetry 98 98 Oxygen Delivery Method Room Air Room Air 05/24/25 16:50 Temperature Temperature Source Pulse Rate Pulse Rate [Right] Respiratory Rate Blood Pressure Blood Pressure [Right Arm] Blood Pressure Mean Blood Pressure Mean [Right Arm] Blood Pressure Source Blood Pressure Source [Right Arm] Blood Pressure Position Blood Pressure Position [Right Arm] 02 Sat by Pulse Oximetry 99 Oxygen Delivery Method Room Air Orders (Tests/Meds): ED MEDICATIONS Discontinued Medications Generic Name Dose Route Start Last Admin Trade Name Freq PRN Reason Stop Dose Admin Lidocaine/Epinephrine 20 ml 05/24/25 16:54 05/24/25 17:16 Lidocaine 1% W/Epi 1:100,000 20ml Vial SQ 05/24/25 16:55 20 ml ONCE ONE Administration Medical Decision Narrative: patient is a 69-year-old female presenting to the emergency department for evaluation of abscess. Patient is hemodynamically stable and nontoxic-appearing upon arrival, afebrile. Differential diagnosis includes abscess. No workup needed today as the abscess I&D was productive and yielded a lot of pus and minimal blood. Patient states it feels better already. Patient will be sent home on antibiotics. She will keep clean with soap and water. She will follow- up with PCP if any further problems occur. Patient safe for discharge home. Procedures Abscess I/D Site: chest Side (if applicable): right Local Anesthetic: lidocaine 1% Amount of anesthesia used (mL): 6 Technique: incised with #11 blade Amount of fluid expressed (mL): 25 Irrigation: No Packing used?: none Complications: pain Critical Care Critical Care Time Critical Care Time: No
[2025-05-24] MEDS: LIDOCAINE 1% W/EPI 1:100,000 20ML VIAL 20 ML SQ (17:16)
[2025-05-24 17:57] VITALS: BP 126/63; PULSE 75; RESP 18; TEMP 37; O2SAT 97
== END 2025-05-24 18:00 | disposition home or self-care (01) ==
PROVIDERS: Emergency Provider Student in an Organized Health Care Education/Training Program; PCP Internal Medicine
DX: L02.213 Cutaneous abscess of chest wall (principal)
CPT/HCPCS: 10060; 99283; 99284; J2004